=== PATIENT | male | born 2000 | race African-American/Black ===

== ENCOUNTER 2022-11-22 18:22 | Emergency (ER) | payer SELFPAY ==
[2022-11-22 19:12] LABS: Bilirubin Neg (Negative); Blood, Urine Negative (Negative); Clarity Clear (Clear); Glucose, Urine (Dipstick) Normal (Negative); Ketone, Urine 5 mg/dL (Negative); Leukocyte Negative (Negative); Nitrite Negative (Negative); Protein, Urine (Dipstick) Negative (Neg-Trace); Specific Gravity, Urine 1.015 (1.005-1.030)
[2022-11-22] MEDS ORDERED: Lidocaine 2% PF 5 ML VIAL ONE (21:27)
[2022-11-22] MEDS ORDERED: cefTRIAXone\\ROCEPHIN 500 MG VIAL ONE (21:27)
[2022-11-24] LABS: Chlam.trachomatis by PCR,Urine Not Detected (NotDetected)
== END 2022-11-22 21:57 | disposition home or self-care (01) ==
LOC: CSHERS 18:22
DX: N45.1 Epididymitis (principal)
CPT/HCPCS: 76870; 81003; 87491; 87591; 93976; 96372; J0696; J2001

== ENCOUNTER 2023-09-09 21:15 | Emergency (ER) | payer SELFPAY ==
[2023-09-09] MEDS ORDERED: Diazepam 5 MG TAB ONE (22:34)
[2023-09-09] MEDS ORDERED: Ketorolac Tromethamine 30 MG/ML VIAL ONE (22:34)
[2023-09-09] MEDS ORDERED: predniSONE 20 MG TAB ONE (22:35)
== END 2023-09-09 22:50 | disposition home or self-care (01) ==
LOC: CSHERS 21:15
DX: M54.50 Low back pain, unspecified (principal); F17.290 Nicotine dependence, other tobacco product, uncomplicated
CPT/HCPCS: 96372; 99283; J1885; J7512